=== PATIENT | male | born 1945 | race Caucasian/White ===

== ENCOUNTER 2017-10-11 16:47 | Emergency (ER) | payer MEDICARE, BC ==
[2017-10-11] MEDS ORDERED: Sodium Chloride 0.9% 1000 ML 1,000 ML IV SCH (17:15)
[2017-10-11] MEDS ORDERED: Sodium Chloride 0.9% 1000 ML 1,000 ML ONE (17:32)
[2017-10-11 18:13] LABS: BASOPHIL % 0.3 % (0.0-0.4); Basophil (Absolute #) 0.02 (0-0.4); Eosinophil % 2.1 % (0.00-5.0); Eosinophil (Absolute #) 0.17 (0-0.5); Granulocyte Absolute (ANC) 5.27 (1.4-6.9); Granulocytes % 66.3 % (36.0-66.0); Hematocrit 49.3 % (42-50); Hemoglobin 16.8 gm/dl (12.5-18.0); Lymphocyte (Absolute #) 1.68 (1.0-4.6); Lymphocytes % 21.2 % (24.0-44.0); Mean Cell Volume 89.6 fl (78-100); Mean Corpuscular Hemoglobin 30.5 pg (26-32); Mean Corpuscular Hgb Concent. 34.1 g/dl (32-36); Mean Platelet Volume 11.5 fl (6-9.5); Monocytes % 10.1 % (0.0-12.0); Platelet Count 175 K/mm3 (150-450); White Blood Count 7.9 K/mm3 (4.0-10.5)
[2017-10-11 18:24] VITALS: O2SAT 97
[2017-10-11 18:31] LABS: ANION GAP 13.4 MEQ/L (5-15); BLOOD UREA NITROGEN 14 mg/dL (9-20); CHLORIDE 107 mmol/L (98-107); Calcium 9.2 mg/dL (8.4-10.2); Carbon Dioxide 27 mmol/L (22-30); Creatinine 1 0.88 mg/dL (0.66-1.25); Glucose 88 mg/dL (74-106); Potassium 4.1 mmol/L (3.5-5.1); SODIUM 144 mmol/L (137-145)
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
[2017-10-11 18:46] LABS: Amphetamine,Urine NEGATIVE (NEGATIVE); Barbiturate,Urine NEGATIVE (NEGATIVE); Benzodiazepine,Urine POSITIVE (NEGATIVE); Cocaine,Urine NEGATIVE (NEGATIVE); Methadone,Urine NEGATIVE (NEGATIVE); Opiate,Urine NEGATIVE (NEGATIVE); PCP,Urine NEGATIVE (NEGATIVE); THC,Urine NEGATIVE (NEGATIVE)
[2017-10-11 18:56] LABS: Appearance CLEAR (CLEAR)
[2017-10-11 18:57] LABS: Bilirubin NEGATIVE (NEGATIVE); Blood NEGATIVE Ery/ul (0-5); Glucose NEGATIVE (NEGATIVE); Ketones NEGATIVE (NEGATIVE); Leukocyte Esterase NEGATIVE (NEGATIVE); Nitrite NEGATIVE (NEGATIVE); Protein,Urine Dip NEGATIVE (Negative); Specific Gravity 1.015 (1.005-1.025); Urobilinogen NORMAL mg/dL (0-1)
[2017-10-11 20:13] VITALS: BP 130/76; PULSE 64
--- NOTE | 2017-10-12 08:36 | XRAY ---
Indication: Confusion. Multiple contiguous axial images obtained through the head without contrast. Comparison: None Age-appropriate global atrophy and mild/moderate periventricular degenerative micro-ischemia bilaterally. No acute intracranial hemorrhage, abnormal extra-axial fluid collection, or mass effect. Fourth ventricle is midline without hydrocephalus. Bony calvarium intact. Moderate mucosal thickening of both ethmoid and both maxillary sinuses with minimal fluid leveling. Mastoid air cells are clear. Impression: 1. Nonacute senile brain. 2. Incidental paranasal sinus disease. CT DI 67.00
--- NOTE | 2017-10-12 08:39 | XRAY ---
Indication: Cough. Comparison: June 21, 2007. Single PA chest again demonstrates minimal left base fibrosis/scarring. No focal infiltrate, consolidation, or large effusion. Heart is not enlarged. Bony thorax intact again with mild osteopenia, degenerative changes, and mild scoliosis. Impression: Stable nonacute chest with chronic features.
== END 2017-10-11 23:03 ==
LOC: ED 16:47
DX: F03.91 Unspecified dementia, unspecified severity, with behavioral disturbance (principal); Z79.899 Other long term (current) drug therapy; R44.3 Hallucinations, unspecified; I10 Essential (primary) hypertension
CPT/HCPCS: 36000; 36415; 70450; 71045; 80048; 80307; 81002; 83735; 84484; 85025; 93005; 99284